=== PATIENT | male | born 1990 | race Caucasian/White ===

== ENCOUNTER 2018-10-21 00:48 | Emergency (ER) | payer BC, OTHER ==
[~2018-10-21] VITALS: Ht 160 cm; Wt 68.8 kg
[2018-10-21 01:22] VITALS: Ht 160 cm; Wt 68.8 kg
[2018-10-21] MEDS ORDERED: TRIA15CR55 TOP (03:35)
[2018-10-21] MEDS ORDERED: LORA10TA3 PO (03:36)
[2018-10-21 04:14] VITALS: BP 114/81; PULSE 62; RESP 16
--- NOTE | 2018-10-24 14:57 | ERD ---
ER Documentation Chief Complaint Chief Complaint RASH, RIGHT LEG X3-4DAYS; NEW JOB CUTTING WOOD HPI 28yo M presents for evaluation of rash to the right inner thigh x 4 days. 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 He notes rash initially developed 4 days ago and has become larger and increased itch. He denies fevers, chills, sweats. No IVDA. He has been applying alcohol to the area and warm compresses to help alleviate symptoms with no improvement. He denies known allergies. Denies use of new soaps, lotions, or detergents. ROS All systems reviewed and are negative except as per history of present illness. Medications Home Meds Active Scripts Loratadine* (Loratadine*) 10 Mg Tablet, 10 MG PO DAILY for itch, #30 TAB Prov:KENYA OVIEDO PA-C 10/21/18 Triamcinolone Acetonide (Triamcinolone Acetonide) 0.1% - 15 Gm Cream.gm., 1 APPLIC TOP BID for rash, #1 TUB Prov:KENYA OVIEDO PA-C 10/21/18 Allergies Allergies: Coded Allergies: No Known Allergy (Unverified , 08/03/15) PMhx/Soc Medical and Surgical Hx: pt denies Medical Hx, pt denies Surgical Hx Hx Alcohol Use: No Hx Substance Use: No Hx Tobacco Use: No Smoking Status: Never smoker FmHx Family History: No diabetes, No coronary disease, No other Physical Exam Vitals Physical Exam Const: No acute distress Head: Atraumatic Eyes: Normal Conjunctiva. No periorbital edema. ENT: Normal External Ears, Nose and Mouth. No tongue swelling, no angioedema. Neck: Full range of motion. No meningismus. Resp: Clear to auscultation bilaterally. No wheezes, stridor. Taking full sentences. Cardio: Regular rate and rhythm, no murmurs Skin: Erythematous, dry, plaque-like lesion to the right inner thigh. No vesiculations, ulcerations, discharge, or warmth. No pain with palpation. No edema. Ext: No cyanosis, or edema Neur: Awake and alert Psych: Normal Mood and Affect Procedures/MDM MDM: Patient presents with rash x 4 days. On exam there is a raised blanchable erythematous rash over the Right inner thigh. Patient denies use of any new medication or topical products. They deny SOB, wheezing, closing of airway, difficulty swallowing, or facial/mouth swelling. They appear to be in NAD, are afebrile and lungs are CTAB, without wheezing or stridor. Dafne explained that rash appears to be allergic in origin, likely atopic dermatitis vs urticaria. Suggested use of topical steroids as well as Benadryl. I also advised follow-up with PCP for allergy testing. At this time I have low suspicion for anaphylaxis, SJS, Kawasakis disease, cellulitis, scarlet fever, erythema nodosum, and erythema migrans. Patient is stable for discharge home and outpatient management at this time, advised to follow-up with PCP in 1-2 days. Strict return precautions discussed. Departure Diagnosis: Primary Impression: Contact dermatitis Contact dermatitis type: irritant Contact dermatitis trigger: unspecified trigger Qualified Codes: L24.9 - Irritant contact dermatitis, unspecified cause Condition: Stable Patient Instructions: Contact Dermatitis Referrals: [facility] YOU HAVE RECEIVED A MEDICAL SCREENING EXAM AND THE RESULTS INDICATE THAT YOU DO NOT HAVE A CONDITION THAT REQUIRES URGENT TREATMENT IN THE EMERGENCY DEPARTMENT. FURTHER EVALUATION AND TREATMENT OF YOUR CONDITION CAN WAIT UNTIL YOU ARE SEEN IN YOUR DOCTORS OFFICE WITHIN THE NEXT 1-2 DAYS. IT IS YOUR RESPONSIBILITY TO MAKE AN APPOINTMENT FOR FOLOW-UP CARE. IF YOU HAVE A PRIMARY DOCTOR --you should call your primary doctor and schedule an appointment IF YOU DO NOT HAVE A PRIMARY DOCTOR YOU CAN CALL OUR PHYSICIAN REFERRAL HOTLINE AT IF YOU CAN NOT AFFORD TO SEE A PHYSICIAN YOU CAN CHOSE FROM THE FOLLOWING [facility] [address] [facility] [address] [facility] [address] [facility] [address] [facility] [address] [facility]. [facility]. [address] PA-C Oct 24, 2018 14:57
== END 2018-10-21 04:14 | disposition home or self-care (01) ==
LOC: FTE 00:48
DX: L24.9 Irritant contact dermatitis, unspecified cause (principal)
CPT/HCPCS: 99283